=== PATIENT | female | born 1970 | race Caucasian/White ===

== ENCOUNTER 2018-02-15 00:26 | Emergency (ER) | payer SELFPAY ==
[~2018-02-15] VITALS: Ht 170.2 cm; Wt 102.1 kg
[~2018-02-15 00:26] MED LIST: CEFU250T11 PO; SCR1T1 PO
--- OUTSIDE RECORDS SUMMARY | 2018-02-15 00:33 | XMS REPORT ---
Author Author DONG RIOS [facility] Address [address] [place] [address] Care Team Providers Care Leno Sewer Name Role Phone DONG RIOS Unavailable PROBLEMS Type Condition ICD9-CM Code [id number] Code Onset Dates Condition Status SNOMED Code Problem Anxiety F41.9 Active 68189328 Assessment Essential (primary) hypertension I10 May, Active 14023760 Problem Elevated liver enzymes R74.8 Active 630933613 Problem Long-term use of high-risk medication Z79.899 Active 319884734 Problem Essential (primary) hypertension I10 Active 15882440 Problem Gastro-esophageal reflux disease without esophagitis K21.9 Active 774931265 Problem Bilateral low back pain without sciatica, unspecified chronicity M54.5 Active 697699839 Problem Insomnia, unspecified G47.00 Active 297059022 ALLERGIES Substance Reaction Event Type Date Status N.K.D.A. Unknown Non Drug Allergy May, Unknown SOCIAL HISTORY No smoking Hx information available PLAN OF CARE VITAL SIGNS Height 67 in 2016-05-26 Weight 253.9 lbs 2016-05-26 Heart Rate 76 bpm 2016-05-26 Respiratory Rate 20 2016-05-26 BMI 39.76 kg/m2 2016-05-26 Blood pressure systolic 182 mmHg 2016-05-26 Blood pressure diastolic 104 mmHg 2016-05-26 MEDICATIONS Medication Instructions Dosage Frequency Start Date End Date Duration Status Omeprazole 40 mg Orally Once a day take 1 capsule 24h 90 days Active Tylenol Active Clonazepam 0.5 MG TAKE ONE TABLET BY MOUTH AT BEDTIME AND ONE-HALF TABLET DURING THE DAY NEEDED FOR ANXIETY 30 Active Indomethacin CR 75 MG Orally twice a day 1 capsule with food or milk 12h May, Active Lisinopril 40 MG Orally Once a day 1/2 tablet 24h Active ibuprofen Active Fluoxetine HCl 20 MG Orally Once a day 1 capsule in the morning 24h 30 days Active RESULTS Name Result Date Reference Range Xray : Spine, Lumbar 2-3 views (IN HOUSE) 2016-05-26 PROCEDURES Procedure Date Ordered Related Diagnosis Body Site X-RAY EXAM OF LOWER SPINE May 26, 2016 Office Visit, Est Pt., Level 4 May 26, 2016 IMMUNIZATIONS No Known Immunizations
--- OUTSIDE RECORDS SUMMARY | 2018-02-15 00:33 | XMS REPORT ---
Author Author DONG RIOS Organization [employer] Address Unknown Phone Unavailable Care Team Providers Care City Designer Name Role Phone DONG RIOS CP Unavailable Allergies No Known Allergies Problems Problem Type Condition Code Onset Dates Condition Status Problem Long-term use of high-risk medication Z79.899 Active Problem Bilateral low back pain without sciatica, unspecified chronicity M54.5 Active Problem Elevated liver enzymes R74.8 Active Problem Gastro-esophageal reflux disease without esophagitis K21.9 Active Problem Anxiety F41.9 Active Problem Insomnia, unspecified G47.00 Active Problem Essential (primary) hypertension I10 Active Medications No Known Medications Results No Known Results Summary Purpose [employer]Clinical[employer] Submission
--- OUTSIDE RECORDS SUMMARY | 2018-02-15 00:33 | XMS REPORT ---
Author Author DONG RIOS [facility] Address [address] [place] [address] Care Team Providers Care Sign Language Interpreter Name Role Phone DONG RIOS Unavailable PROBLEMS Type Condition ICD9-CM Code SLI54-AP Code Onset Dates Condition Status SNOMED Code Problem Gastro-esophageal reflux disease without esophagitis K21.9 Active 097483319 Problem Anxiety F41.9 Active 10354980 Problem Allergic rhinitis, unspecified allergic rhinitis trigger, unspecified rhinitis seasonality J30.9 Active 09313081 Problem Elevated liver enzymes R74.8 Active 544084844 Problem Essential (primary) hypertension I10 Active 63668093 Problem Insomnia, unspecified G47.00 Active 182365774 Problem Long-term use of high-risk medication Z79.899 Active 454608500 Problem Bilateral low back pain without sciatica, unspecified chronicity M54.5 Active 096395255 ALLERGIES No Information SOCIAL HISTORY Never Assessed PLAN OF CARE VITAL SIGNS MEDICATIONS Medication Instructions Dosage Frequency Start Date End Date Duration Status Clonazepam 0.5 MG TAKE ONE TABLET BY MOUTH AT BEDTIME AND ONE-HALF TABLET DURING THE DAY NEEDED FOR ANXIETY 30 Active RESULTS No Results PROCEDURES No Known procedures IMMUNIZATIONS No Known Immunizations MEDICAL (GENERAL) HISTORY Type Description Date Medical History hypertension
--- OUTSIDE RECORDS SUMMARY | 2018-02-15 00:33 | XMS REPORT ---
Author Author DONG RIOS Organization [employer] Address Unknown Phone Unavailable Care Team Providers Care Cyber Instructor Name Role Phone DONG RIOS CP Unavailable Allergies, Adverse Reactions, Alerts Substance Reaction Event Type N.K.D.A. Info Not Available Non Drug Allergy Problems Problem Type Condition Code Onset Dates Condition Status Assessment Anxiety F41.9 Active Problem Essential (primary) hypertension I10 Active Problem Gastro-esophageal reflux disease without esophagitis K21.9 Active Problem Insomnia, unspecified G47.00 Active Assessment Essential (primary) hypertension I10 Active Assessment Gastro-esophageal reflux disease without esophagitis K21.9 Active Problem Anxiety F41.9 Active Assessment Insomnia, unspecified G47.00 Active Medications Medication Code System Code Instructions Start Date End Date Status Dosage Clonazepam [facility] [address]-51 0.5 MG Orally TAKE ONE TABLET BY MOUTH AT BEDTIME AND ONE-HALF TABLET DURING THE DAY NEEDED FOR ANXIETY Fluoxetine HCl [facility] [address]-99 20 MG Orally Once a day 1 capsule in the morning Lisinopril [facility] [address]-07 10 MG Orally Once a day 1 tablet Omeprazole [facility] [address]-14 40 MG Orally Once a day Oct 16, 2014 take 1 capsule Procedures Procedure Coding System Code Date Office Visit, Est Pt., Level 3 CPT-4 90709 Jun 11, 2015 VENIPUNCT, ROUTINE* CPT-4 76920 Jun 11, 2015 COMPREHEN METABOLIC PANEL CPT-4 89910 Jun 11, 2015 Vital Signs Date/Time: Jun 11, 2015 Temperature 96.6 F Weight 247.7 lbs Height 67 in BMI 38.79 Index Blood Pressure Diastolic 90 mmHg Blood Pressure Systolic 132 mmHg Cardiac Monitoring Heart Rate 76 bpm Results Name Result Date Reference Range Unit Abnormality Flag ROUTINE VENIPUNCTURE Summary Purpose [employer]ClinicalWorks Submission
--- OUTSIDE RECORDS SUMMARY | 2018-02-15 00:34 | XMS REPORT ---
Author Author DONG RIOS Organization [employer] Address Unknown Phone Unavailable Care Team Providers Care Pasta Press Operator Name Role Phone DONG RIOS CP Unavailable Allergies No Known Allergies Problems Problem Type Condition Code Onset Dates Condition Status Problem Essential (primary) hypertension I10 Active Problem Gastro-esophageal reflux disease without esophagitis K21.9 Active Problem Insomnia, unspecified G47.00 Active Problem Anxiety F41.9 Active Medications No Known Medications Results No Known Results Summary Purpose [employer] Submission
--- OUTSIDE RECORDS SUMMARY | 2018-02-15 00:34 | XMS REPORT ---
Author Author DONG RIOS Organization [employer] Address Unknown Phone Unavailable Care Team Providers Care Compactor Driver Name Role Phone DONG RIOS CP Unavailable Allergies No Known Allergies Problems Problem Type Condition Code Onset Dates Condition Status Problem Essential (primary) hypertension I10 Active Problem Gastro-esophageal reflux disease without esophagitis K21.9 Active Problem Insomnia, unspecified G47.00 Active Problem Anxiety F41.9 Active Medications No Known Medications Results No Known Results Summary Purpose [employer] Submission
--- OUTSIDE RECORDS SUMMARY | 2018-02-15 00:34 | XMS REPORT ---
Author Author DONG RIOS [facility] Address [address] [place] [address] Care Team Providers Care Progress Worker Name Role Phone DONG RIOS Unavailable PROBLEMS Type Condition ICD9-CM Code LVQ65-FD Code Onset Dates Condition Status SNOMED Code Problem Gastro-esophageal reflux disease without esophagitis K21.9 Active 236577171 Problem Anxiety F41.9 Active 34840542 Problem Allergic rhinitis, unspecified allergic rhinitis trigger, unspecified rhinitis seasonality J30.9 Active 75251126 Problem Elevated liver enzymes R74.8 Active 699284574 Problem Essential (primary) hypertension I10 Active 19164619 Problem Insomnia, unspecified G47.00 Active 996805821 Problem Long-term use of high-risk medication Z79.899 Active 502253854 Problem Bilateral low back pain without sciatica, unspecified chronicity M54.5 Active 689423349 ALLERGIES Substance Reaction Event Type Date Status N.K.D.A. Unknown Non Drug Allergy Sep, Unknown SOCIAL HISTORY No smoking Hx information available PLAN OF CARE Activity Details Follow Up 6 Months, prn Reason:BP/Anxiety VITAL SIGNS Height 67 in 2016-09-20 Weight 246 lbs 2016-09-20 Temperature 98.0 degrees Fahrenheit 2016-09-20 Heart Rate 80 bpm 2016-09-20 Respiratory Rate 20 2016-09-20 BMI 38.52 kg/m2 2016-09-20 Blood pressure systolic 134 mmHg 2016-09-20 Blood pressure diastolic 90 mmHg 2016-09-20 MEDICATIONS Medication Instructions Dosage Frequency Start Date End Date Duration Status Fluoxetine HCl 20 MG Orally Once a day 1 capsule in the morning 24h 30 days Active Clonazepam 0.5 MG TAKE ONE TABLET BY MOUTH AT BEDTIME AND ONE-HALF TABLET DURING THE DAY NEEDED FOR ANXIETY 30 Active Lisinopril 20 MG Orally Once a day 1 tablet 24h 30 days Active Indomethacin CR 75 MG Orally twice a day 1 capsule with food or milk 12h 22 May, 2016 Active PredniSONE 20 mg Orally Once a day 1 tablet 24h 17 Sep, 2016 Sep, 05 days Active ibuprofen Active Tylenol Active Omeprazole 40 mg Orally Once a day take 1 capsule 24h 90 days Active RESULTS No Results PROCEDURES Procedure Date Ordered Related Diagnosis Body Site Office Visit, Est Pt., Level 4 Sep 20, 2016 IMMUNIZATIONS No Known Immunizations
--- OUTSIDE RECORDS SUMMARY | 2018-02-15 00:34 | XMS REPORT ---
Author Author DONG RIOS [facility] Address [address] [place] [address] Care Team Providers Care Thinner Sprayer Name Role Phone DONG RIOS Unavailable PROBLEMS Type Condition ICD9-CM Code EXZ53-LO Code Onset Dates Condition Status SNOMED Code Problem Insomnia, unspecified G47.00 Active 855894192 Problem Anxiety F41.9 Active 93568682 Problem Essential (primary) hypertension I10 Active 56969852 Problem Gastro-esophageal reflux disease without esophagitis K21.9 Active 390029651 Problem Hyperlipidemia LDL goal <100 E78.5 Active 15982323 Problem Arthritis M19.90 Active 2102215 Problem Long-term use of high-risk medication Z79.899 Active 325739325 Problem Bilateral low back pain without sciatica, unspecified chronicity M54.5 Active 099499781 Problem Allergic rhinitis, unspecified allergic rhinitis trigger, unspecified rhinitis seasonality J30.9 Active 28091750 Problem Elevated liver enzymes R74.8 Active 015667976 ALLERGIES No Known Allergies ENCOUNTERS Encounter Location Date Diagnosis [facility] [id number] [place] [address] January, Anxiety F41.9 [facility] [id number] [place] [address] January, Periodontal abscess 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.219 [facility] [address] [address] Nov, Anxiety F41.9 [facility] [address] [address] Aug, Essential (primary) hypertension I10 ; Anxiety F41.9 ; Hyperlipidemia LDL goal <100 E78.5 ; Gastro-esophageal reflux disease without esophagitis K21.9 and Arthritis M19.90 [facility] [id number] [place] [address] Jul, Anxiety F41.9 [facility] [id number] [place] [address] Jun, Anxiety F41.9 [facility] [id number] [place] [address] May, Essential (primary) hypertension I10 and Elevated liver enzymes R74.8 [facility] [id number] [place] [address] Apr, Anxiety F41.9 [facility] [address] [address] January, Anxiety F41.9 [facility] [id number] [place] [address] Dec, Essential (primary) hypertension I10 [facility] [id number] [place] [address] Sep, Essential (primary) hypertension I10 ; Gastro-esophageal reflux disease without esophagitis K21.9 ; Anxiety F41.9 ; Elevated liver enzymes R74.8 ; Long-term use of high-risk medication Z79.899 and Allergic rhinitis, unspecified allergic rhinitis trigger, unspecified rhinitis seasonality J30.9 [facility] [id number] [place] [address] Aug, [facility] [id number] [place] [address] Jun, [facility] [id number] [place] [address] May, Essential (primary) hypertension I10 ; Gastro-esophageal reflux disease without esophagitis K21.9 ; Anxiety F41.9 ; Elevated liver enzymes R74.8 ; Long-term use of high-risk medication Z79.899 and Bilateral low back pain without sciatica, unspecified chronicity M54.5 [facility] [facility] [address], [place] [address] May, [facility] [id number] [place] [address] January, [facility] [id number] [place] [address] Oct, [facility] [id number] [place] [address] Oct, Essential (primary) hypertension I10 ; Gastro-esophageal reflux disease without esophagitis K21.9 ; Anxiety F41.9 and Elevated liver enzymes R74.8 [facility] [id number] [place] [address] Aug, [facility] [id number] [place] [address] Jul, [facility] [facility] [id number] [place] [address] Jun, Essential (primary) hypertension I10 [facility] [facility] [id number] [place] [address] Jun, Insomnia, unspecified G47.00 ; Essential (primary) hypertension I10 ; Gastro-esophageal reflux disease without esophagitis K21.9 and Anxiety F41.9 [place] [address] [place] [address] Mar, Anxiety disorder in conditions classified elsewhere 293.84 [place] [facility] [id number] [place] [address] Feb, Anxiety disorder in conditions classified elsewhere 293.84 ; Other voice disturbance 784.49 ; Esophageal reflux 530.81 ; Insomnia, unspecified 780.52 and Essential hypertension, benign 401.1 [facility] [address] [address] January, [place] [facility] [id number] [place] [address] 14 Dec, 2014 [facility] [place] [facility] [address] [id number] [place] [address] 13 Dec, 2014 [facility] [place] [facility] [address] [id number] [place] [address] 16 Nov, 2014 [facility] [place] [facility] [address] [id number] [place] [address] Nov, [facility] [place] [facility] [address] [id number] [place] [address] Nov, [facility] [place] [facility] [address] [id number] [place] [address] Oct, [facility] [place] [facility] [address] [id number] [place] [address] Oct, [facility] [place] [facility] [address] [id number] [place] [address] Oct, [facility] [place] [facility] [address] [id number] [place] [address] Oct, [facility] [place] [facility] [address] [id number] [place] [address] Sep, [facility] [place] [facility] [address] [id number] [place] [address] Sep, [facility] [place] [facility] [address] [id number] [place] [address] Sep, [facility] [place] [facility] [address] [id number] [place] [address] Sep, [facility] [place] [facility] [address] [id number] [place] [address] Sep, [facility] [place] [facility] [address] [id number] [place] [address] Sep, [facility] [place] [facility] [address] [id number] [place] [address] 1468 Sep, [facility] [place] [facility] [address] [id number] [place] [address] Sep, [facility] [address] [id number] [place] [address] Aug, [facility] [address] [id number] [place] Aug, [facility] [address] [id number] [place] Aug, [facility] [address] [id number] [place] [address] Aug, [facility] [address] [id number] [place] [address] Aug, [facility] [address] [facility] [id number] [place] [address] Aug, [facility] [address] [facility] [id number] [place] [address] Jul, [facility] [address] [id number] [place] [address] 24 Jul, 2014 [facility] [address] [facility] [id number] [place] [address] 16 May, 2014 [facility] [address] [facility] [id number] [place] [address]- [address] 16 May, 2014 [facility] [address] [facility] [id number] [place] [address] 02 May, 2014 [facility] [address] [facility] [id number] [place] [address] 02 May, 2014 [facility] [address] [facility] [id number] [place] [address] 14 Sep, 2013 [facility] [address] [facility] [id number] [place] [address] Sep, [facility] [address] [facility] [id number] [place] [address] Dec, IMMUNIZATIONS No Known Immunizations SOCIAL HISTORY Never Assessed REASON FOR VISIT med review, doing well-Twin PLAN OF CARE Activity Details Follow Up 6 Months, prn Reason:anxiety VITAL SIGNS Height 67 in 2017-08-15 Weight 244.4 lbs 2017-08-15 Temperature 98.0 degrees Fahrenheit 2017-08-15 Heart Rate 84 bpm 2017-08-15 Respiratory Rate 20 2017-08-15 BMI 38.27 kg/m2 2017-08-15 Blood pressure systolic 110 mmHg 2017-08-15 Blood pressure diastolic 68 mmHg 2017-08-15 MEDICATIONS Medication Instructions Dosage Frequency Start Date End Date Duration Status Omeprazole 40 mg Orally Once a day take 1 capsule 24h 90 days Active Fish Oil Sterling-3 1000 MG Orally Once a day 2 capsule 24h 12 Aug, 2017 Sep, 30 day(s) Active Indomethacin ER 75 MG Orally twice a day 1 capsule with food or milk 12h 22 May, 2016 Active ibuprofen Active Fluoxetine HCl 20 mg Orally Once a day 1 capsule in the morning 24h 30 Active Clonazepam 0.5 MG TAKE ONE TABLET BY MOUTH AT BEDTIME AND ONE-HALF TABLET DURING THE DAY NEEDED FOR ANXIETY 30 Active Lisinopril 20 mg Orally Once a day 1 tablet 24h 30 Active Tylenol Active RESULTS No Results PROCEDURES No Known procedures INSTRUCTIONS MEDICATIONS ADMINISTERED No Known Medications MEDICAL (GENERAL) HISTORY Type Description Date Medical History hypertension Medical History anxiety
--- OUTSIDE RECORDS SUMMARY | 2018-02-15 00:34 | XMS REPORT ---
Author Author DONG RIOS Organization [employer] Address Unknown Phone Unavailable Care Team Providers Care Agriculture Department Chair Name Role Phone DONG RIOS CP Unavailable Allergies No Known Allergies Problems Problem Type Condition Code Onset Dates Condition Status Problem Essential (primary) hypertension I10 Active Problem Gastro-esophageal reflux disease without esophagitis K21.9 Active Problem Insomnia, unspecified G47.00 Active Problem Anxiety F41.9 Active Assessment Essential (primary) hypertension I10 Active Medications No Known Medications Results No Known Results Summary Purpose eClinical[employer] Submission
--- OUTSIDE RECORDS SUMMARY | 2018-02-15 00:34 | XMS REPORT ---
Author Author YADIEL MONTERROSO [facility] Address [address] [place] [address] Care Team Providers Care Program Writer Name Role Phone YADIEL MONTERROSO Unavailable PROBLEMS Type Condition ICD9-CM Code ZFT15-YO Code Onset Dates Condition Status SNOMED Code Problem Anxiety F41.9 Active 14267261 Problem Elevated liver enzymes R74.8 Active 356135977 Problem Long-term use of high-risk medication Z79.899 Active 216407150 Problem Essential (primary) hypertension I10 Active 22921024 Problem Gastro-esophageal reflux disease without esophagitis K21.9 Active 157351798 Problem Bilateral low back pain without sciatica, unspecified chronicity M54.5 Active 037185843 Problem Insomnia, unspecified G47.00 Active 192677131 ALLERGIES Unknown Allergies SOCIAL HISTORY No smoking Hx information available PLAN OF CARE VITAL SIGNS MEDICATIONS Unknown Medications RESULTS No Results PROCEDURES No Known procedures IMMUNIZATIONS No Known Immunizations
--- OUTSIDE RECORDS SUMMARY | 2018-02-15 00:34 | XMS REPORT ---
Author Author DONG RIOS [facility] Address [address] [place] [address] Care Team Providers Care Senior Qa Engineer Name Role Phone RISSACherise DONG Unavailable PROBLEMS Type Condition ICD9-CM Code JGM26-OI Code Onset Dates Condition Status SNOMED Code Problem Insomnia, unspecified G47.00 Active 182405121 Problem Anxiety F41.9 Active 24479652 Problem Essential (primary) hypertension I10 Active 76520234 Problem Gastro-esophageal reflux disease without esophagitis K21.9 Active 181302940 Problem Hyperlipidemia LDL goal <100 E78.5 Active 39497566 Problem Arthritis M19.90 Active 2555687 Problem Long-term use of high-risk medication Z79.899 Active 968720152 Problem Bilateral low back pain without sciatica, unspecified chronicity M54.5 Active 627931172 Problem Allergic rhinitis, unspecified allergic rhinitis trigger, unspecified rhinitis seasonality J30.9 Active 74572488 Problem Elevated liver enzymes R74.8 Active 778323992 ALLERGIES No Information ENCOUNTERS Encounter Location Date Diagnosis [place] [id number] [place] [address] 15667- 4295 Nov, Anxiety F41.9 [place] [address] [place] [id number] [place] [address] 38630- 5137 Aug, Essential (primary) hypertension I10 ; Anxiety F41.9 ; Hyperlipidemia LDL goal <100 E78.5 ; Gastro-esophageal reflux disease without esophagitis K21.9 and Arthritis M19.90 [place] [address] [place] [id number] [place] [address] 96007- 7966 Jul, Anxiety F41.9 [place] [address] [place] [id number] [place] [address] 99026- 1035 Jun, Anxiety F41.9 [place] [id number] [place] [address] 46360- 6678 May, Essential (primary) hypertension I10 and Elevated liver enzymes R74.8 [place] [address] [place] [id number] [place] [address] 75242- 4128 Apr, Anxiety F41.9 [place] [address] [place] [id number] [place] [address] 55702- 1988 January, Anxiety F41.9 [place] [address] [place] [id number] [place] [address] 18392- 6007 Dec, Essential (primary) hypertension I10 [place] [address] [address]- [address]67 Sep, Essential (primary) hypertension I10 ; Gastro-esophageal reflux disease without esophagitis K21.9 ; Anxiety F41.9 ; Elevated liver enzymes R74.8 ; Long-term use of high-risk medication Z79.899 and Allergic rhinitis, unspecified allergic rhinitis trigger, unspecified rhinitis seasonality J30.9 [place] [address] [place] [id number] [place] [address] 90336- 8573 Aug, [place] [address] [place] [id number] [place] [address] 10507- 1995 Jun, [place] [address] [place] [id number] [place] [address] 47824- 9346 May, Essential (primary) hypertension I10 ; Gastro-esophageal reflux disease without esophagitis K21.9 ; Anxiety F41.9 ; Elevated liver enzymes R74.8 ; Long-term use of high-risk medication Z79.899 and Bilateral low back pain without sciatica, unspecified chronicity M54.5 [place] [address] [place] [id number] [place] [address] 42200- 0347 May, [place] [address] [place] [id number] [place] [address] 58945- 6944 January, [place] [address] [place] [id number] [place] [address] 58696- 1526 Oct, [place] [address] [place] [id number] [place] [address] 10710- 9338 Oct, Essential (primary) hypertension I10 ; Gastro-esophageal reflux disease without esophagitis K21.9 ; Anxiety F41.9 and Elevated liver enzymes R74.8 [place] [id number] [place] [address] 39081- 9973 Aug, [place] [address] 39945- 7608 Jul, [address] 36492- 4852 Jun, Essential (primary) hypertension I10 [place] [id number] [place] [address] 36016- 3593 Jun, Insomnia, unspecified G47.00 ; Essential (primary) hypertension I10 ; Gastro-esophageal reflux disease without esophagitis K21.9 and Anxiety F41.9 [place] [id number] [place] [address] 28652- 5724 Mar, Anxiety disorder in conditions classified elsewhere 293.84 [place] [id number] [place] [address] 30738- 6475 Feb, Anxiety disorder in conditions classified elsewhere 293.84 ; Other voice disturbance 784.49 ; Esophageal reflux 530.81 ; Insomnia, unspecified 780.52 and Essential hypertension, benign 401.1 [place] [address] [place] [id number] [place] [address] 89649- 7490 January, [place] [id number] [place] [address] 18480- 7547 14 Dec, 2014 [place] [id number] [place] [address] 40218- 0582 13 Dec, 2014 [place] [id number] [place] [address] 21635- 6281 16 Nov, [address] [id number] [place] [address] Nov, [facility] [place] [facility] [address] [id number] [place] [address] 2[address] Nov, [facility] [place] [facility] [address] [id number] [place] [address] 1316 Oct, [facility] [place] [facility] [address] [id number] [place] [address]- 8096 Oct, [facility] [place] [facility] [address] [id number] [place] [address]- 8934 Oct, [facility] [place] [facility] [address] [id number] [place] [address]- 8419 Oct, [facility] [place] [facility] [address] [id number] [place] [address] 9733 Sep, [facility] [place] [facility] [address] [id number] [place] [address]- 6814 Sep, [facility] [place] [facility] [address] [id number] [place] [address] 9161 Sep, [facility] [place] [facility] [address] [id number] [place] [address]- 3382 Sep, [facility] [place] [facility] [address] [id number] [place] [address]- 0654 Sep, [facility] [place] [facility] [address] [id number] [place] [address]- 6118 Sep, [facility] [place] [facility] [address] [id number] [place] [address]- 9070 Sep, [facility] [place] [facility] [address] [id number] [place] [address]- 0242 Sep, [facility] [place] [facility] [address] [id number] [place] [address]- 7380 Aug, [facility] [place] [facility] [address] [id number] [place] [address] 24[address] Aug, [facility] [address] [place] [id number] [address] 395[address] Aug, [facility] [address] [address] Aug, [facility] [address] [address] 0679 Aug, [facility] [address] [address] Aug, [facility] [address] [place] [address] 7236 Jul, [facility] [address] [place] [address] 3678 Jul, [facility] [address] [place] [address]- 4574 May, [facility] [address] [place] [address]- 1379 May, [facility] [address] [address]- 1520 May, [facility] [address] [place] [address]- 4517 May, [facility] [address] [place] [address]- 7684 Sep, [facility] [address] [place] [address]- 6537 Sep, [facility] [address] [place] [id number] [address] Dec, IMMUNIZATIONS No Known Immunizations SOCIAL HISTORY Never Assessed REASON FOR VISIT Controlled Med Refill PLAN OF CARE VITAL SIGNS MEDICATIONS Medication [...]
--- OUTSIDE RECORDS SUMMARY | 2018-02-15 00:35 | XMS REPORT ---
Author Author DONG RIOS Organization [employer] Address Unknown Phone Unavailable Care Team Providers Care Writer Producer Name Role Phone DONG RIOS CP Unavailable Allergies No Known Allergies Problems Problem Type Condition Code Onset Dates Condition Status Problem Essential (primary) hypertension I10 Active Problem Gastro-esophageal reflux disease without esophagitis K21.9 Active Problem Insomnia, unspecified G47.00 Active Problem Anxiety F41.9 Active Medications No Known Medications Results No Known Results Summary Purpose [employer] Submission
--- OUTSIDE RECORDS SUMMARY | 2018-02-15 00:36 | XMS REPORT | Continuity of Care Document ---
Author Author [facility] Address Unknown Phone Unavailable Allergies Active Description Code Type Severity Reaction Onset Reported/Identified Relationship to Patient Clinical Status Yes No Known Drug Allergies [id number] Drug Allergy Unknown N/A 03/10/2015 Medications There is no data. Problems Date Dx Coded Attending Type Code Diagnosis Diagnosed By 12/11/2012 782.0 DISTURBANCE OF SKIN SENSATION 12/11/2012 796.2 ELEVATED BLOOD PRESSURE READING WITHOUT DIAGNOSIS OF HYPERTENSION 12/11/2012 MONTIEL CASHERO ONLINE ADVERTISING ANALYST, LUDMILA N 782.0 DISTURBANCE OF SKIN SENSATION 12/11/2012 MONTIEL CASHERO ONLINE ADVERTISING ANALYST, LUDMILA N 796.2 ELEVATED BLOOD PRESSURE READING WITHOUT DIAGNOSIS OF HYPERTENSION 12/11/2012 MADL ONLINE ADVERTISING ANALYST, DONG L 782.0 DISTURBANCE OF SKIN SENSATION 12/11/2012 MADL ONLINE ADVERTISING ANALYST, DONG L 796.2 ELEVATED BLOOD PRESSURE READING WITHOUT DIAGNOSIS OF HYPERTENSION 12/11/2012 MONTERROSO DO, YADIEL K 782.0 DISTURBANCE OF SKIN SENSATION 12/11/2012 MONTERROSO DO, YADIEL K 796.2 ELEVATED BLOOD PRESSURE READING WITHOUT DIAGNOSIS OF HYPERTENSION 12/11/2012 MADL ONLINE ADVERTISING ANALYST, DONG L 782.0 DISTURBANCE OF SKIN SENSATION 12/11/2012 MADL ONLINE ADVERTISING ANALYST, DONG L 796.2 ELEVATED BLOOD PRESSURE READING WITHOUT DIAGNOSIS OF HYPERTENSION 12/11/2012 MADL ONLINE ADVERTISING ANALYST, DONG L 782.0 DISTURBANCE OF SKIN SENSATION 12/11/2012 MADL ONLINE ADVERTISING ANALYST, DONG L 796.2 ELEVATED BLOOD PRESSURE READING WITHOUT DIAGNOSIS OF HYPERTENSION 12/11/2012 MADL ONLINE ADVERTISING ANALYST, DONG L 782.0 DISTURBANCE OF SKIN SENSATION 12/11/2012 MADL ONLINE ADVERTISING ANALYST, DONG L 796.2 ELEVATED BLOOD PRESSURE READING WITHOUT DIAGNOSIS OF HYPERTENSION 12/11/2012 HARLAN ONLINE ADVERTISING ANALYST, JACKY S 782.0 DISTURBANCE OF SKIN SENSATION 12/11/2012 HARLAN ANGULO JACKY S 796.2 ELEVATED BLOOD PRESSURE READING WITHOUT DIAGNOSIS OF HYPERTENSION 09/17/2013 TIANA LACEY APRN, LUDMILA N 465.9 ACUTE UPPER RESPIRATORY INFECTIONS OF UNSPECIFIED SITE 09/17/2013 TIANA LACEY APRN, LUDMILA N 784.49 OTHER VOICE AND RESONANCE DISORDERS 09/17/2013 TIANA LACEY APRN, LUDMILA N 784.91 POSTNASAL DRIP 09/17/2013 BLANCA DEL CIDN, DONG L 465.9 ACUTE UPPER RESPIRATORY INFECTIONS OF UNSPECIFIED SITE 09/17/2013 MADL ONLINE ADVERTISING ANALYST, DONG L 784.49 OTHER VOICE AND RESONANCE DISORDERS 09/17/2013 MADL ONLINE ADVERTISING ANALYST, DONG L 784.91 POSTNASAL DRIP 09/17/2013 MONTERROSO DO, YADIEL K 465.9 ACUTE UPPER RESPIRATORY INFECTIONS OF UNSPECIFIED SITE 09/17/2013 MONTERROSO DO, YADIEL K 784.49 OTHER VOICE AND RESONANCE DISORDERS 09/17/2013 MONTERROSO DO, YADIEL K 784.91 POSTNASAL DRIP 09/17/2013 MADL ONLINE ADVERTISING ANALYST, DONG L 465.9 ACUTE UPPER RESPIRATORY INFECTIONS OF UNSPECIFIED SITE 09/17/2013 MADL ONLINE ADVERTISING ANALYST, DONG L 784.49 OTHER VOICE AND RESONANCE DISORDERS 09/17/2013 MADL ONLINE ADVERTISING ANALYST, DONG L 784.91 POSTNASAL DRIP 09/17/2013 MADL ONLINE ADVERTISING ANALYST, DONG L 465.9 ACUTE UPPER RESPIRATORY INFECTIONS OF UNSPECIFIED SITE 09/17/2013 MADL ONLINE ADVERTISING ANALYST, DONG L 784.49 OTHER VOICE AND RESONANCE DISORDERS 09/17/2013 MADL ONLINE ADVERTISING ANALYST, DONG L 784.91 POSTNASAL DRIP 09/17/2013 MADL ONLINE ADVERTISING ANALYST, DONG L 465.9 ACUTE UPPER RESPIRATORY INFECTIONS OF UNSPECIFIED SITE 09/17/2013 MADL ONLINE ADVERTISING ANALYST, DONG L 784.49 OTHER VOICE AND RESONANCE DISORDERS 09/17/2013 MADL ONLINE ADVERTISING ANALYST, DONG L 784.91 POSTNASAL DRIP 09/17/2013 HARLAN ANGULO JACKY S 465.9 ACUTE UPPER RESPIRATORY INFECTIONS OF UNSPECIFIED SITE 09/17/2013 HARLAN ANGULO JACKY S 784.49 OTHER VOICE AND RESONANCE DISORDERS 09/17/2013 HARLAN ANGULO JACKY S 784.91 POSTNASAL DRIP 05/06/2014 MADL ONLINE ADVERTISING ANALYST, DONG L 293.84 ANXIETY DISORDER IN CONDITIONS CLASSIFIED ELSEWHERE 05/06/2014 YADIEL MONTERROSO DO 293.84 ANXIETY DISORDER IN CONDITIONS CLASSIFIED ELSEWHERE 05/06/2014 MADL ONLINE ADVERTISING ANALYST, DONG L 293.84 ANXIETY DISORDER IN CONDITIONS CLASSIFIED ELSEWHERE 05/06/2014 MADL ONLINE ADVERTISING ANALYST, DONG L 293.84 ANXIETY DISORDER IN CONDITIONS CLASSIFIED ELSEWHERE 05/06/2014 MADL ONLINE ADVERTISING ANALYST, DONG L 293.84 ANXIETY DISORDER IN CONDITIONS CLASSIFIED ELSEWHERE 05/06/2014 HARLAN ONLINE ADVERTISING ANALYST, JACKY S 293.84 ANXIETY DISORDER IN CONDITIONS CLASSIFIED ELSEWHERE 05/20/2014 YADIEL MONTERROSO DO K 780.52 INSOMNIA UNSPECIFIED 05/20/2014 MADL ONLINE ADVERTISING ANALYST, DONG L 780.52 INSOMNIA UNSPECIFIED 05/20/2014 MADL ONLINE ADVERTISING ANALYST, DONG L 780.52 INSOMNIA UNSPECIFIED 05/20/2014 MADL ONLINE ADVERTISING ANALYST, DONG L 780.52 INSOMNIA UNSPECIFIED 05/20/2014 HARLAN ONLINE ADVERTISING ANALYST, JACKY S 780.52 INSOMNIA UNSPECIFIED 07/28/2014 YADIEL MONTERROSO DO K 401.1 HYPERTENSION, BENIGN ESSENTIAL 07/28/2014 MADL ONLINE ADVERTISING ANALYST, DONG L 401.1 HYPERTENSION, BENIGN ESSENTIAL 07/28/2014 MADL ONLINE ADVERTISING ANALYST, DONG L 401.1 HYPERTENSION, BENIGN ESSENTIAL 07/28/2014 MADL ONLINE ADVERTISING ANALYST, DONG L 401.1 HYPERTENSION, BENIGN ESSENTIAL 07/28/2014 HARLAN ANGULO, JACKY S 401.1 HYPERTENSION, BENIGN ESSENTIAL 11/13/2014 MADL ONLINE ADVERTISING ANALYST, DONG L 530.81 ESOPHAGEAL REFLUX 11/13/2014 HARLAN ONLINE ADVERTISING ANALYST, JACKY S 530.81 ESOPHAGEAL REFLUX 12/15/2014 MADL ONLINE ADVERTISING ANALYST, DONG L 465.9 UPPER RESPIRATORY INFECTION 12/15/2014 MADL ONLINE ADVERTISING ANALYST, DONG L 692.9 CONTACT DERMATITIS AND OTHER ECZEMA UNSPECIFIED CAUSE 12/15/2014 HARLAN ONLINE ADVERTISING ANALYST, JACKY S 465.9 UPPER RESPIRATORY INFECTION 12/15/2014 HARLAN ANGULO, JACKY S 692.9 CONTACT DERMATITIS AND OTHER ECZEMA UNSPECIFIED CAUSE 12/22/2014 JACKY CLAROS APRN 461.9 SINUSITIS ACUTE 03/11/2015 DANIEL LAO DO Ot 305.00 ALCOHOL ABUSE-UNSPEC 03/11/2015 DANIEL LAO DO Ot 305.1 TOBACCO USE DISORDER 03/11/2015 DANIEL LAO DO Ot 535.31 ALCOHOLIC GASTRITIS, WITH HEMORRHAGE 03/11/2015 DANIEL LAO DO Ot 578.0 HEMATEMESIS 03/11/2015 DANIEL LAO DO Ot 599.0 URIN TRACT INFECTION NOS 05/17/2016 QUENTIN MALHOTRA, TERI Segura Ot R21 RASH AND OTHER NONSPECIFIC SKIN ERUPTION 05/17/2016 QUENTIN MALHOTRA, TERI Segura Ot Z53.21 PROC/TRTMT NOT CRD OUT D/T PT LV BEF SEE Procedures Code Description [place] [address] ROUTINE VENIPUNCTURE 07/28/2014 35146 CMP 07/28/2014 [id number] GFR CALC (RESULT ONLY) 07/28/2014 Results Test Result Range Comp. Metabolic Panel (14) - 05/30/17 09:23 Glucose, Serum 96 mg/dL 65-99 BUN 19 mg/dL 6-24 Creatinine, Serum 0.73 mg/dL 0.57-1.00 eGFR If NonAfricn Am 100 mL/min/1.73 >59 eGFR If Africn Am 115 mL/min/1.73 >59 BUN/Creatinine Ratio 26 9-23 Sodium, Serum 140 mmol/L 134-144 Potassium, Serum 4.4 mmol/L 3.5-5.2 Chloride, Serum 100 mmol/L 96-106 Carbon Dioxide, Total 23 mmol/L 18-29 Calcium, Serum 9.3 mg/dL 8.7-10.2 Protein, Total, Serum 7.5 g/dL 6.0-8.5 Albumin, Serum 4.1 g/dL 3.5-5.5 Globulin, Total 3.4 g/dL 1.5-4.5 A/G Ratio 1.2 1.2-2.2 Bilirubin, Total 0.5 mg/dL 0.0-1.2 Alkaline Phosphatase, S 117 IU/L 39-117 AST (SGOT) 23 IU/L 0-40 ALT (SGPT) 28 IU/L 0-32 Lipid Panel - 05/30/17 09:23 Cholesterol, Total 267 mg/dL 100-199 Triglycerides 281 mg/dL 0-149 HDL Cholesterol 46 mg/dL >39 VLDL Cholesterol Gabriel 56 mg/dL 5-40 LDL Cholesterol Calc 165 mg/dL 0-99 LIPID PANEL - 05/30/17 09:23 Cholesterol, Total 267 mg/dL 100-199 Triglycerides 281 mg/dL 0-149 HDL Cholesterol 46 mg/dL >39 VLDL Cholesterol Gabriel 56 mg/dL 5-40 LDL Cholesterol Calc 165 mg/dL 0-99 Comment: NRG CMP - 05/30/17 09:23 Glucose, Serum 96 mg/dL 65-99 BUN 19 mg/dL 6-24 Creatinine, Serum 0.73 mg/dL 0.57-1.00 eGFR If NonAfricn Am 100 mL/min/1.73 >59 eGFR If Africn Am 115 mL/min/1.73 >59 BUN/Creatinine Ratio 26 9-23 Sodium, Serum 140 mmol/L 134-144 Potassium, Serum 4.4 mmol/L 3.5-5.2 Chloride, Serum 100 mmol/L 96-106 Carbon Dioxide, Total 23 mmol/L 18-29 Calcium, Serum 9.3 mg/dL 8.7-10.2 Protein, Total, Serum 7.5 g/dL 6.0-8.5 Albumin, Serum 4.1 g/dL 3.5-5.5 Globulin, Total 3.4 g/dL 1.5-4.5 A/G Ratio 1.2 1.2-2.2 Bilirubin, Total 0.5 mg/dL 0.0-1.2 Alkaline Phosphatase, S 117 IU/L 39-117 AST (SGOT) 23 IU/L 0-40 ALT (SGPT) 28 IU/L 0-32 Encounters ACCT No. Visit Date/Time Discharge Status Pt. Type Provider Facility Loc./Unit Complaint [id number] 12/22/2014 10:51:00 12/22/2014 23:59:59 [facility] Outpatient JACKY CLAROS APRN [id number] 12/15/2014 10:55:00 12/15/2014 23:59:59 [facility] Outpatient DONG RIOS APRN [id number] 10/16/2014 08:33:00 10/16/2014 23:59:59 [facility] Outpatient DONG RIOS APRN [id number] 09/10/2014 16:02:00 09/10/2014 23:59:59 [facility] Outpatient DONG RIOS APRN Cherise [id number] 07/28/2014 15:01:00 07/28/2014 23:59:59 [facility] Outpatient YADIEL MONTERROSO DO Rita [id number] 05/06/2014 10:08:00 05/06/2014 23:59:59 [facility] Outpatient DONG RIOS APRN Cherise [id number] 09/17/2013 10:08:00 09/17/2013 23:59:59 [facility] Outpatient LUDMILA READ APRN N [id number] 12/11/2012 11:03:00 12/11/2012 23:59:59 CLS Outpatient [id number] 05/31/2017 09:11:00 Document Registration [id number] 01/17/2018 19:45:00 01/17/2018 23:59:59 [facility] Outpatient DONG RIOS APRN Cherise [facility] [id number] 05/30/2017 09:40:00 Document Registration [id number] 05/15/2016 19:33:00 05/15/2016 20:45:00 DIS Outpatient TERI SAAVEDRA MD [facility] ER L LEG RASH/BRUISING [id number] 03/10/2015 22:11:00 03/11/2015 01:02:00 DIS Emergency DANIEL LAO DO [facility] ER SPITTING UP BLOOD
[2018-02-15] MEDS ORDERED: oxyCODONE/APAP 5/325MG (PERCOCET 5) TABLET PO ONE (01:45)
--- NOTE | 2018-02-15 01:59 | ED Fall/Injury ---
General Chief Complaint: Chest Wall/Rib Pain Stated Complaint: POSS BROKEN RIB Nursing Triage Note: Pt reports she fell on her porch on Monday, and has left sided rib pain since falling. Source: patient Exam Limitations: no limitations History of Present Illness Date Seen by Provider: Feb 15, 2018 Time Seen by Provider: 01:07 Initial Comments This 47 year old woman presents to the emergency room with complaints of right lateral chest pain from a fall on February 11. She had been swinging high on a porch swing when she fell off. She struck her right side on a wooden porch. She denies any head or neck injury. Pain has increased since that time. She has tried taking Tylenol and hydrocodone without much benefit. She reports pain is worse with movement and especially with cough. She has a bruising below the ribs on the right flank but denies any pain in the abdomen. She is concerned that she has broken a rib. Allergies and Home Medications Allergies Coded Allergies: No Known Drug Allergies (Unverified , 03/10/15) Home Medications Cefuroxime Axetil 250 Mg Tablet, 250 MG PO BID Prescribed by: DANIEL LAO on 03/11/1539 Sucralfate 1 Gm Tab, 1 GM PO ACHS Prescribed by: DANIEL LAO on 03/11/1539 Patient Home Medication List Home Medication List Reviewed: Yes Review of Systems Constitutional: no symptoms reported Eyes: No Symptoms Reported Ears, Nose, Mouth, Throat: no symptoms reported Respiratory: see HPI Cardiovascular: no symptoms reported Gastrointestinal: no symptoms reported Genitourinary: no symptoms reported : No Musculoskeletal: see HPI Skin: see HPI Psychiatric/Neurological: No Symptoms Reported Past Qmsmggg-Icygrm-Iigjby Hx Past Med/Social Hx: Reviewed and Corrections made Patient Social History Recent Foreign Travel: No Contact w/Someone Who Travel: No Recent Infectious Disease Expo: No Immunizations Up To Date Tetanus Booster (TDap): Unknown Seasonal Allergies Seasonal Allergies: Yes Past Medical History Cardiac: Yes Hypertension : No Hx : 2 Hx Para: 2 Hx Total # of Abortions (Sp): 0 Reproductive Disorders: No 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 Sexually Transmitted Disease: No Gastrointestinal: Yes Gastroesophageal Reflux Musculoskeletal: No Endocrine: No HEENT: No Cancer: No Psychosocial: Yes Anxiety, Depression Physical Exam Vital Signs Vital Signs - First Documented 02/15/18 02/15/18 01:11 02:04 Temp 97.2 Pulse 72 Resp 20 B/P (MAP) 141/112 (122) Pulse Ox 97 O2 Delivery Room Air Capillary Refill : Less Than 3 Seconds General Appearance: WD/WN, mild distress HEENT: PERRL/EOMI, normal ENT inspection Neck: normal inspection Cardiovascular: regular rate, rhythm, no edema, no murmur Respiratory: lungs clear, normal breath sounds, no respiratory distress, no accessory muscle use, other (chest tender to palpation over the right mid lateral ribs.) Gastrointestinal: normal bowel sounds, non tender, soft Back: normal inspection Extremities: normal inspection, no pedal edema Neurologic/Psychiatric: remote operations producer II-XII nml as tested, no motor/sensory deficits, alert, normal mood/affect, oriented x 3 Skin: normal color, warm/dry, ecchymosis (just beneath the ribs on the right flank) Progress/Results/Core Measures Results/Orders My Orders Orders - TERI SAAVEDRA MD Chest Pa/Lat (2 View) (02/15/18 01:13) Ribs, Right 2-3 Views (02/15/18 01:13) Oxycodone/Apap 5/325mg Tablet (Percocet (02/15/18 01:45) Medications Given in ED Current Medications Medications Dose Ordered Sig/Caroline Route Start Time Stop Time Status Last Admin Dose Admin Oxycodone/ Acetaminophen 1 tab ONCE ONCE PO 02/15/18 01:45 02/15/18 01:46 DC 02/15/18 01:45 1 TAB Vital Signs/I&O 02/15/18 02/15/18 01:11 02:04 Temp 97.2 Pulse 72 Resp 20 20 B/P (MAP) 141/112 (122) 138/92 (122) Pulse Ox 97 O2 Delivery Room Air Blood Pressure Mean: 122 Progress Progress Note : Progress Note No fractures or other acute cardiopulmonary pathology was identified. Patient was given Percocet for management of pain. She also has indomethacin previously prescribed. She took an indomethacin capsule while in the ER. Diagnostic Imaging Diagonstic Imaging: Xray Plain Films/CT/US/NM/MRI: chest Comments Right rib x-rays along with two-view chest x-ray were obtained. No pneumothorax was appreciated. No rib fractures were identified. No x-ray evidence of pulmonary contusion or pneumonia. X-rays reviewed by me. Report not yet available. Departure Impression Primary Impression: Chest wall contusion Qualified Codes: S20.211A - Contusion of right front wall of thorax, initial encounter Additional Impression: Fall involving swing as cause of accidental injury Disposition: HOME, SELF-CARE Condition: Improved Departure-Patient Inst. Decision time for Depature: 01:54 Referrals: [facility] (PCP/Family) Primary Care Physician Patient Instructions: CHEST CONTUSION Add. Discharge Instructions: You may take indomethacin as prescribed. Avoid combining with other NSAID medications such as ibuprofen, naproxen, Aleve, Advil, aspirin, etc. You may add Tylenol (acetaminophen) to your indomethacin up to 1000 mg every 6 hours as needed. Return to care if symptoms are worsening or if you develop new symptoms such as fever, cough, etc. Exercise deep breathing with 10 deep breaths 10 times per hour while awake. Work toward quitting smoking and seek help from your doctor if needed. All discharge instructions reviewed with patient and/or family. Voiced understanding. TERI SAAVEDRA MD Feb 15, 2018 01:59
[2018-02-15 02:04] VITALS: BP 138/92
--- NOTE | 2018-02-15 06:51 | Diagnostic Imaging Report ---
INDICATION: Fall. Pain. COMPARISON: None FINDINGS: 2 views of the chest are obtained. Heart size is normal. The pulmonary vessels appear unremarkable. There is no pneumothorax, mediastinal widening or pleural fluid. Lungs are clear. The osseous structures appear unremarkable. IMPRESSION: No acute abnormality is demonstrated. Dictated by: Dictated on workstation # [id number]
--- NOTE | 2018-02-15 06:52 | Diagnostic Imaging Report ---
Indication: Fall. Pain. Comparison: None FINDINGS: 3 views of the right wrist are obtained. No acute fracture, malalignment or osseous destructive process seen. IMPRESSION: Negative right ribs. Dictated by: Dictated on workstation # [id number]
== END 2018-02-15 02:04 | disposition home or self-care (01) ==
LOC: ER 00:29
DX: S20.211A Contusion of right front wall of thorax, initial encounter (principal); I10 Essential (primary) hypertension; K21.9 Gastro-esophageal reflux disease without esophagitis; F41.9 Anxiety disorder, unspecified; F32.9 Major depressive disorder, single episode, unspecified; W09.1XXA Fall from playground swing, initial encounter
CPT/HCPCS: 71046; 71100

== ENCOUNTER → 2019-03-20 | Emergency (ER) | payer SELFPAY | LOC: ER 21:55 ==